=== PATIENT | female | born 1930 | race Caucasian/White ===

== ENCOUNTER 2016-06-20 09:35 | Emergency (ER) | payer MEDICARE, OTHER ==
[2016-06-20 09:45] VITALS: BP 133/51
[2016-06-20 10:04] LABS: Hematocrit 31.2 % (37.0-47.0); Hemoglobin 9.7 gm/dL (12.5-16.0); Mean Corpuscular Hemoglobin 28.3 pg (27-31); Mean Corpuscular Hgb Conc 31.1 g/dl (32-36); Mean Platelet Volume 10.8 fl (6.0-9.5); Neutrophil # 6.7 K/mm3 (1.3-6.0); Neutrophil % 83.4 % (42-75.0); Platelet Count 216 K/mm3 (150-450); Red Blood Count 3.43 M/mm3 (4.2-5.4); Red Cell Distribution Width 15.1 % (11.5-14.0); White Blood Count 8.1 K/mm3 (4.0-10.5)
[2016-06-20 10:18] LABS: Prothrombin Time (Patient) 10.7 Seconds (9.4-11.4)
[2016-06-20 10:19] LABS: INR 1.03 INR (0.90-1.10); Partial Thrombolplastin Time 22.5 Seconds (24-32)
[2016-06-20 11:04] LABS: BUN/Creatinine Ratio 16.9 (9.0-21.6)
[2016-06-20 11:05] LABS: Albumin * 3.2 gm/dl (3.4-5.0); Anion Gap 14.7 mmol/L (6.8-13.8); Bilirubin, Total 0.5 mg/dL (0.0-1.1); Ca. Corrected For Albumin 9.7 mg/dL (8.4-10.2); Calcium * 9.4 mg/dL (7.9-10.9); Carbon Dioxide 25.8 mmol/L (24-32.6); Potassium 3.5 mmol/L (3.4-4.6); Total Protein 6.4 gm/dL (6.2-8.2); Troponin I 0.03 ng/ml (0.00-0.10)
--- NOTE | 2016-06-20 11:10 | ERNOTE ---
Medical Problem HPI - Narrative Date of Service: 06/20/16 - General Chief Complaint: General Assessment Time Seen by Provider: 06/20/16 09:40 Source: patient Exam Limitations: no limitations - Immun/Allergies/Home Medications Immunizations: IMMUNIZATION HX Immunizations Up to Date Yes Allergies/Adverse Reactions: Allergies No Known Allergies Allergy (Verified 06/20/16 09:45) Home Medications: HOME MEDICATIONS Aspirin [Aspirin Enteric Coated] 325 mg PO DAILY 09/30/14 [Last Taken Unknown] Atorvastatin Calcium [Lipitor] 40 mg PO HS 09/30/14 [Last Taken Unknown] Calcium Carbonate/Vitamin D3 [Calcium 600 + Vit D 400 Tablet] 1 each PO DAILY [Last Taken Unknown] Cholecalciferol (Vitamin D3) [Vitamin D3] 1,000 unit PO DAILY 09/30/14 [Last Taken Unknown] Clopidogrel Bisulfate [Plavix] 75 mg PO DAILY 09/30/14 [Last Taken Unknown] Digoxin [Lanoxin] 0.125 mg PO Q2D 09/30/14 [Last Taken Unknown] Docusate Sodium [Colace] 100 mg PO DAILY PRN 09/30/14 [Last Taken Unknown] Doxazosin Mesylate [Cardura] 1 mg PO HS 09/30/14 [Last Taken Unknown] Furosemide [Lasix] 60 mg PO DAILY 09/30/14 [Last Taken Unknown] Hydrocodone/Acetaminophen [Lortab 5-325 mg Tablet] 1 - 2 each PO Q6H PRN [Last Taken Unknown] Isosorbide Mononitrate [Imdur] 60 mg PO HS 09/30/14 [Last Taken 10/17/14 06:30] Levothyroxine Sodium [Synthroid] 150 mcg PO DAILY 09/30/14 [Last Taken Unknown] Lidocaine [Lidoderm 5%] 1 patch TP DAILY 09/30/14 [Last Taken Unknown] Metoprolol Succinate [Toprol Xl] 100 mg PO DAILY 09/30/14 [Last Taken 10/17/14 06:30] Multivitamins [Multivitamin Zara] 1 cap PO DAILY 09/30/14 [Last Taken Unknown] Ondansetron [Zofran Odt] 4 mg PO Q6H PRN 09/30/14 [Last Taken Unknown] Potassium Chloride [K-Dur] 40 meq PO DAILY 09/30/14 [Last Taken Unknown] Quinapril HCl [Accupril] 40 mg PO BID 09/30/14 [Last Taken 10/17/14 06:30] amLODIPine BESYLATE [Norvasc] 5 mg PO DAILY 09/30/14 [Last Taken 10/17/14 06:30] Blood Sugar Diagnostic, Drum [Accu-Chek Compact] 1 each MC QID #30 11/25/14 [ Last Taken Unknown] Insulin Glargine,Hum.rec.anlog [Lantus] 30 units SC HS #2 vial 11/25/14 [Last Taken Unknown] Insulin Lispro [Humalog] 10 units SC TIDWM #1 vial 11/25/14 [Last Taken Unknown] - History of Present History Narrative: Patient comes due to feeling weak. Patient reported she has Hx of Anemia. Patient reported she has been coughing. Patient's grocery worker reported patient has been confuse. At the moment patient is not confuse. Timing: constant Severity: mild Modifying Factors - (Improves): Present: other - Nothing Modifying Factors - (Worsens): Present: other - Nothing Review of Systems - Review of Systems Constitutional: Present: chills, weakness, malaise. Absent: fever EYE: Present: no symptoms reported ENT: Present: no symptoms reported Respiratory: Present: cough - Non productive Cardiology: Absent: chest pain, palpitations, syncope, edema, claudication Gastrointestinal/Abdominal: Absent: nausea, vomiting, diarrhea, abdominal pain Genitourinary: Present: no symptoms reported Musculoskeletal: Present: no symptoms reported Skin: Absent: rash, dryness, lesions Neurological: Present: weakness - Generalized and no specific. Absent: anxiety , depressed, dizziness/light-headedness, seizure, numbness, tingling Endocrine: Present: no symptoms reported Hematologic/Lymphatic: Absent: easy bruising, easy bleeding Psych: Present: no symptoms reported - Patient's Past Medical History Patient History - Medical: Anemia, Arthritis, Diabetes Type 2, Hypothyroidism, Osteoarthritis, Renal Failure Patient History - Cancer: Thyroid Patient History - Surgical Procedures: Cataracts, Pacemaker, Total Hip Replacement - Family History Mother Family History - Medical: Family History - Cardiac/Respiratory: No pertinent hx Father Family History - Medical: , No pertinent hx Family History - Cardiac/Respiratory: No pertinent hx - Social History Living Situations: alone Smoking Status: Never smoker Have you smoked in the past 12 months: No Alcohol Use: none Drug Use: none Physical Exam - Physical Exam General Appearance: Present: alert, no apparent distress, active. Absent: lethargic, obese Eye Exam: Normal inspection: bilateral, PERRL: bilateral, EOMI: bilateral, Conjunctivae pale: bilateral - Mild Ears, Nose, Throat: Present: normal ENT inspection, hearing grossly normal, normal pharynx Neck: Present: normal inspection, nontender Respiratory: Present: no respiratory distress, normal breath sounds, no accessory muscle use, chest nontender, lungs clear Cardiovascular/Chest: Present: regular rate, rhythm, normal peripheral pulses, systolic murmur, other - Patient has a PPM on chest noticed Peripheral Pulses: N=norm/S=strong/W=weak/B=bound/A=absent: Carotid (R): Normal , Carotid (L): Normal, Radial (R): Normal, Radial (L): Normal, Dorsalis-pedis (R ): Normal, Dorsalis-pedis (L): Normal Gastrointestinal/Abdominal: Present: normal bowel sounds, nontender, nondistended, soft, no organomegaly. Absent: guarding, rebound, mass, hernia Back Exam: Present: normal inspection, normal range of motion, no CVA tenderness , no vertebral tenderness Extremity Exam: Present: normal inspection, non-tender, no edema, normal range of motion Neurological Exam: Present: alert, oriented, normal mood/affect, no motor/ sensory deficits DTR: N=norm/NB=norm/brisk/A=abs/DD=dull/dimin/HC=hyperactive: Bicep (R): Normal , Bicep (L): Normal, Knee (R): Normal, Knee (L): Normal Skin Exam: Present: normal color, warm/dry Lymphatic Exam: Present: no adenopathy ED Progress - Results and Orders Patient's Lab Results:: I have reviewed the patient's lab results. Results and Orders: Patient Hgb is > 8 and is not actively bleeding and is stable since last year. Patient Creat and BUN are stable since last year Patient has normal K level Troponin is negative. Patient with renal disease and PPM. UA no sign of infection - Vital Signs Patient's Vital Signs:: I have reviewed the patient's vital signs. Vital Signs: Vital Signs 06/20/16 09:41 Temperature 34.7 C L Pulse Rate 66 Respiratory 14 Rate Blood Pressure 133/51 O2 Sat by Pulse 99 Oximetry - EKG EKG read: Interp. by me EKG Comments: HR: 61, No ST Elevation. Patient has an active PPM, LBBB pattern, no change from previous EKG - X-Ray X-Ray #1 X-Ray: chest X-ray Comments: No pathology reported by Radiologist - CT/Ultrasound CT/Ultrasound Narrative: No acute process reported by Radiologist - Progress/Reassessment Chief Complaint: General Assessment Progress:: Unchanged - Transfer of Care Expected Disposition: Discharge Plan - Plan Plan: Patient with no acute infectious process. Patient will follow in clinic. manager production has been consulted to evaluate case and assist patient with her social needs. Departure - Departure Clinical Impression: Weakness Anemia Qualifiers: Anemia type: other cause Other causes of anemia: chronic disease, kidney Qualified Code(s): N18.9 - Chronic kidney disease, unspecified; D63.1 - Anemia in chronic kidney disease Disposition: Home self-care Condition: Stable Instructions: Anemia, Nonspecific, Weakness Referrals: Kristen Perea MD [Primary Care Provider] -
[2016-06-20 11:13] LABS: Urine Bilirubin Negative (NEGATIVE); Urine Ketone Negative (NEGATIVE); Urine Nitrite Negative (NEGATIVE); Urine Protein >=300 mg/dL (NEGATIVE); Urine Specific Gravity 1.025 SP.GR. (1.005-1.010); Urine Urobilinogen Normal (NORMAL)
[2016-06-20 11:21] LABS: Urine Blood 10 /ul (NEGATIVE)
[2016-06-20 11:22] LABS: Urine Appearance Clear; Urine Bacteria None Seen; Urine Color Yellow; Urine RBC 0-5 /hpf (0-5); Urine WBC 0-5 /hpf (0-5)
== END 2016-06-20 12:05 | disposition home or self-care (01) ==
LOC: ER 09:35
DX: N18.9 Chronic kidney disease, unspecified (principal); D63.1 Anemia in chronic kidney disease; Z85.850 Personal history of malignant neoplasm of thyroid; Z95.0 Presence of cardiac pacemaker; Z96.649 Presence of unspecified artificial hip joint

== ENCOUNTER 2016-06-21 10:22 | Observation (INO) | payer MEDICARE, OTHER ==
[2016-06-21] MEDS ORDERED: SPIRONOLACTONE 25 MG TABLET PO STA (11:21)
[2016-06-21] MEDS ORDERED: METOLAZONE 2.5 MG TABLET PO ONE (11:23)
[2016-06-21] MEDS ORDERED: BISACODYL 5 MG TABLET.DR PO ONE (11:25)
[2016-06-21] MEDS ORDERED: FUROSEMIDE 10 MG/ML VIAL IV ONE (11:39)
[2016-06-21] MEDS ORDERED: MORPHINE SULFATE 10 MG/ML SYRG IV PRN (11:41)
--- NOTE | 2016-06-21 12:23 | HP ---
Chief Complaint - Chief Complaint Date of Service: 06/21/16 Time of Service: 11:20 Chief Complaint: CHF exacerbation, CKD History of Present Illness: 85 years old female adm to the hospital from Dr Perea office. PMH significant for CHF, End stage renal disease hypertension, diabetes type II, a- fib, cardiomyopathy, hypothyroidism. pt stated for the past 2-5 days she has been feeling excessively weak with increased swelling to her legs and hands. She report orthopnea and sleep sitting up in chair. This morning she was feeling worst and was unable to get out of bed due to weakness. She called her friend/ care maker who drove her to PCP. Pt stated she cant remember if she had taken her medications for the past few days. She just want to be at home and comfortably. Pt stated she want to be DNR and is agreeable to hospice service. Pt poor historian hence previous charts were reviewed to obtained additional information. Will be adm in [facility] for comfortable measures and discharge with hospice. - Patient's Past Medical History Patient History - Medical: Anemia - Of chronic disease, Arthritis, Diabetes Type 2, Hypothyroidism, Osteoarthritis, Renal Failure Patient History - Cardiac/Respiratory: Atrial Fibrillation, CHF - systolic EF 35 %, Hypertension Patient History - Cancer: Thyroid, Skin - basal cell Patient History - Surgical Procedures: Cataracts - BL cataracts removed, Pacemaker, Total Hip Replacement - BL hip replacement, Other - Liver biopsy, insertion of renal artery stent (11/2010), partial thyroidectomy - Family History Mother Family History - Medical: Family History - Cardiac/Respiratory: No pertinent hx Father Family History - Medical: , No pertinent hx Family History - Cardiac/Respiratory: No pertinent hx Brother Family History - Cancer: Other - Facial cancer - Social History Living Situations: alone Smoking Status: Never smoker Have you smoked in the past 12 months: No Do you dip or chew tobacco: No Patient requests Smoking Cessation Consult: No Initiate information on Smoking Cessation: No Alcohol Use: none Drug Use: none Review Of Systems (GEN) - Review of Systems Generalized/Overall Review: Present: Weakness EENTM: Present: No Symptoms Reported Respiratory: Present: Orthopnea Cardiac: Present: Edema Abdominal: Present: Constipation Genitourinary: Present: No Symptoms Reported Musculoskeletal: Present: No Symptoms Reported Neurological: Present: No Symptoms Reported Skin: Present: No Symptoms Reported Endocrine: Present: No Symptoms Reported Immunizations: IMMUNIZATION HX Immunizations Up to Date Yes Allergies/Adverse Reactions: Allergies Allergy/AdvReac Type Severity Reaction Status Date / Time No Known Allergies Allergy Verified 06/20/16 09:45 Home Medications: HOME MEDICATIONS Aspirin [Aspirin Enteric Coated] 325 mg PO DAILY 09/30/14 [Last Taken Unknown] Atorvastatin Calcium [Lipitor] 40 mg PO HS 09/30/14 [Last Taken Unknown] Calcium Carbonate/Vitamin D3 [Calcium 600 + Vit D 400 Tablet] 1 each PO DAILY [Last Taken Unknown] Cholecalciferol (Vitamin D3) [Vitamin D3] 2,000 unit PO DAILY 09/30/14 [Last Taken Unknown] Clopidogrel Bisulfate [Plavix] 75 mg PO DAILY 09/30/14 [Last Taken Unknown] Digoxin [Lanoxin] 0.125 mg PO Q2D 09/30/14 [Last Taken Unknown] Doxazosin Mesylate [Cardura] 1 mg PO HS 09/30/14 [Last Taken Unknown] Furosemide [Lasix] 40 mg PO DAILY 09/30/14 [Last Taken Unknown] Isosorbide Mononitrate [Imdur] 60 mg PO HS 09/30/14 [Last Taken 10/17/14 06:30] Lidocaine [Lidoderm 5%] 1 patch TP DAILY 09/30/14 [Last Taken Unknown] Metoprolol Succinate [Toprol Xl] 50 mg PO DAILY 09/30/14 [Last Taken 10/17/14 06 :30] Multivitamins [Multivitamin Zara] 1 cap PO DAILY 09/30/14 [Last Taken Unknown] Ondansetron [Zofran Odt] 4 mg PO Q6H PRN 09/30/14 [Last Taken Unknown] Potassium Chloride [K-Dur] 20 meq PO DAILY 09/30/14 [Last Taken Unknown] Quinapril HCl [Accupril] 40 mg PO HS 09/30/14 [Last Taken 10/17/14 06:30] amLODIPine BESYLATE [Norvasc] 5 mg PO DAILY 09/30/14 [Last Taken 10/17/14 06:30] Blood Sugar Diagnostic, Drum [Accu-Chek Compact] 1 each MC QID #30 11/25/14 [ Last Taken Unknown] Insulin Glargine,Hum.rec.anlog [Lantus] 30 units SC HS #2 vial 11/25/14 [Last Taken Unknown] Insulin Lispro [Humalog] 10 units SC TIDWM #1 vial 11/25/14 [Last Taken Unknown] Acetaminophen [Tylenol] 500 mg PO DAILY PRN 06/21/16 [Last Taken Unknown] Ferrous Sulfate [Iron] 325 mg PO DAILY 06/21/16 [Last Taken Unknown] Hydroxychloroquine Sulfate [Plaquenil] 200 mg PO BID 06/21/16 [Last Taken Unknown] Levothyroxine Sodium [Levo-T] 100 mcg PO DAILY 06/21/16 [Last Taken Unknown] Exam - Exam Vital Signs: Vital Signs - Last Taken Temp 34.7 C L 06/20/16 12:18 Pulse Resp BP 133/51 06/20/16 12:18 Pulse Ox Constitutional: Present: Alert, Oriented x3, Cooperative, Well developed, Mild distress, Elderly, Obese ENT Exam: Present: moist mucous membranes Eye Exam: bilateral eye: PERRL Neck: Present: full range of motion Back Exam: Present: normal inspection, no CVA tenderness, no vertebral tenderness Respiratory: Present: chest non-tender, normal breath sounds, no accessory muscle use, decreased breath sounds, crackles Cardiovascular/Chest: Present: normal peripheral pulses, no chest tenderness, no gallop, no JVD, other - BLE pitting edema Peripheral Pulses: dorsalis-pedis (R): 2+, dorsalis-pedis (L): 2+ Abdomen: Present: Normal bowel sounds, soft, nontender, nondistended, no rebound tenderness /Rectal: Present: Exam deferred Extremity: Present: normal range of motion, non-tender, normal inspection, lower extremity edema, pedal edema, slow capillary refill Skin Exam: Present: normal color, warm/dry, no cyanosis Lymphatic: Present: no adenopathy Neurologic: Present: oriented x 3 Appearance: Present: appropriate appearance Eye contact: Present: cooperative, good eye contact Thoughts: Present: normal thought pattern Diagnostic Studies: Laboratory Tests 11/24/14 11/24/14 06/20/16 01:39 01:39 10:00 WBC 8.1 RBC 3.43 L Hgb 9.7 L Hct 31.2 L MCV 91.0 MCH 28.3 MCHC 31.1 L RDW 15.1 H Plt Count 216 MPV 10.8 H Immature Gran % (Auto) 0.50 H Immature Gran # (Auto) 0.04 H Neutrophils % 83.4 H Lymphocytes % 7.3 L PT 10.7 INR (Anticoag Therapy) 1.03 PTT ([place]) 22.5 L Sodium 141 Plasma Sodium 143 H Potassium 3.5 Chloride 104 BUN 43 H 53 H Creatinine 2.3 H 3.14 H D Est GFR (Non-Af Amer) 22 L 15 L D Random Glucose 200 H Hemoglobin A1c 7.8 H Assessment/Plan - Narrative Narrative: Systolic CHF exacerbation- possible due non compliance with taking home medications. EF 35% pt with Pacemaker/ defibrillator Lasix 120mg IV x1, Metalazone 2.5mg po x1 and Aldactone 75mg x1 Monitor BMP, CBC in am Morphine 5mg Q6 PRN Supplemented oxygen PRN Constipation Dulcolax now and continue with senna PRN Chronic Kidney Disease stage IV 04/17 pt was recommend for renal replacement therapy with senior producer and refused. 06/20 BUN/ Cre 53/3.14 Avoid Nephrotoxic agents Diabetes Acc-check AC+HS and low dose sliding scale Continue with home dose Lantus 30 units HS Consistent carb diet Anemia or chronic disease 06/20 16 Hgb 9.7- stable since last year Code Status: DNR VTE ppx: Ambulate Plan to be discharge with hospice home vs [place] with daughter. Time: 45 minutes - Assessment/Plan (1) CHF (congestive heart failure) Problem: Acute Qualifiers: Congestive heart failure type: systolic Congestive heart failure chronicity : acute on chronic Qualified Code(s): I50.23 - Acute on chronic systolic ( congestive) heart failure (2) CKD (chronic kidney disease) Problem: Chronic Qualifiers: Chronic kidney disease stage: stage 5 Qualified Code(s): N18.5 - Chronic kidney disease, stage 5 (3) Anemia Problem: Chronic Qualifiers: Other causes of anemia: chronic disease, kidney (4) Diabetes Problem: Chronic Qualifiers: Diabetes mellitus type: type 2 Diabetes mellitus complication detail: with chronic kidney disease Diabetes mellitus terminal operations manager insulin use: with terminal operations manager use Chronic kidney disease stage: stage 5, not on chronic dialysis
[2016-06-21] MEDS ORDERED: SENNOSIDES/DOCUSATE SODIUM 1 TAB TABLET PO SCH (21:00)
[2016-06-22 05:52] LABS: Hematocrit 32.3 % (37.0-47.0); Hemoglobin 10.2 gm/dL (12.5-16.0); Mean Corpuscular Hemoglobin 27.8 pg (27-31); Mean Corpuscular Hgb Conc 31.6 g/dl (32-36); Mean Platelet Volume 11.5 fl (6.0-9.5); Neutrophil # 6.2 K/mm3 (1.3-6.0); Neutrophil % 74.6 % (42-75.0); Platelet Count 177 K/mm3 (150-450); Red Blood Count 3.67 M/mm3 (4.2-5.4); Red Cell Distribution Width 15.2 % (11.5-14.0); White Blood Count 8.3 K/mm3 (4.0-10.5)
[2016-06-22 06:11] LABS: Anion Gap 13.9 mmol/L (6.8-13.8); Calcium * 9.5 mg/dL (7.9-10.9); Carbon Dioxide 29.4 mmol/L (24-32.6); Estimated Creat Clear 11.2; Potassium 3.3 mmol/L (3.4-4.6)
[2016-06-22] MEDS ORDERED: FUROSEMIDE 10 MG/ML VIAL IV STA ×2 (08:38)
[2016-06-22] MEDS ORDERED: SPIRONOLACTONE 100 MG TABLET PO STA (08:41)
[2016-06-22] MEDS ORDERED: SPIRONOLACTONE 25 MG TABLET ONE ×2 (08:59→09:01)
[2016-06-22] MEDS ORDERED: FUROSEMIDE 10 MG/ML VIAL ONE ×2 (08:59→09:01)
[2016-06-22] MEDS ORDERED: ISOSORBIDE MONONITRATE 60 MG TAB.SR.24H PO SCH (09:00)
[2016-06-22] MEDS: hydrALAZINE HCL 10 MG TABLET PO SCH ×2 (09:21→13:55)
[2016-06-22 11:23] VITALS: BP 96/76
--- NOTE | 2016-06-22 13:24 | DS ---
(1) HFrEF (heart failure with reduced ejection fraction) Problem: Acute Qualifiers: Heart failure chronicity: acute on chronic Qualified Code(s): I50.23 - Acute on chronic systolic (congestive) heart failure (2) CKD (chronic kidney disease) stage 4, GFR 15-29 ml/min Problem: Chronic (3) Hypertension Problem: Chronic Qualifiers: Hypertension type: essential hypertension Qualified Code(s): I10 - Essential (primary) hypertension (4) Anemia in chronic renal disease Problem: Chronic (5) chronic afib w/ PPM Problem: Chronic Description of Stay: DATE OF ADMISSION: 06/21/2016. DATE OF DISCHARGE: 06/22/2016. HOSPITAL COURSE: Fabienne Meyer is a 86-year-old WF with a H/O HTN, HLD, T2DM, HFrEF 35%, CKD stage IV who came into the office because of increasing shortness of breath/ difficulty in breathing for the last few days. She has seen a examining officer in the past and decided against dialysis. Her medications were maximized for CHF. She was dyspneic at rest. Her son and daughter were called as she wanted to go into hospice. She was given diuretics IV and morphine IV with improvement in CHF, SOB and anxiety. Her daughter [CARLA] drove down from [place] and decided to take the patient with her. Explained the condition in detail and discussed all the medications with her. A copy of the last report from the examining officer was given to the daughter after she signed a release. A copy of the H&P and labs were also given to the patient. Prescription for liquid morphine was given for shortness of breath and anxiety. Her condition at the time of transfer was stable. No return appointment was scheduled as the patient was moving out of state. Procedures Performed: none Results and Findings: Laboratory Tests 06/22/16 05:45 WBC 8.3 Hgb 10.2 L Hct 32.3 L Plt Count 177 06/22/16 05:45 Plasma Sodium 144 H Potassium 3.3 L Chloride 102 Carbon Dioxide 29.4 BUN 51 H Creatinine 3.00 H Est GFR (Non-Af Amer) 16 L Random Glucose 251 H Calcium 9.5 Discharge Disposition: Home self care Disposition: Home self-care Condition: Poor Discharge Activity: Activity as tolerated Discharge Diet: Consistent carbs, Low salt, Low fat/chol Referrals: Kristen Perea MD [Primary Care Provider] - Problem Oriented Discharge Instructions to Patient/Family: Chronic Kidney Disease, [id number] Additional Patient Instructions (free text): patient given a script for oral morphine liquid 10 mg/5ml - give 5mg QID prn - 250 ml. Prescriptions (Any new or edited meds): Bumetanide 2 mg PO DAILY #30 tablet Insulin Glargine,Hum.rec.anlog [Lantus] 20 units SC HS #2 vial Insulin Lispro [Humalog] 5 units SC TIDWM #1 vial Sennosides/Docusate Sodium [Senokot-S] 2 tab PO HS #1 bottle Complete Home Medications List: Complete Home Medication List: Atorvastatin Calcium [Lipitor] 40 mg PO HS 09/30/14 Cholecalciferol (Vitamin D3) [Vitamin D3] 2,000 unit PO DAILY 09/30/14 Clopidogrel Bisulfate [Plavix] 75 mg PO DAILY 09/30/14 Digoxin [Lanoxin] 0.125 mg PO Q2D 09/30/14 Isosorbide Mononitrate [Imdur] 60 mg PO HS 09/30/14 Metoprolol Succinate [Toprol Xl] 50 mg PO DAILY 09/30/14 Multivitamins [Multivitamin Zara] 1 cap PO DAILY 09/30/14 Potassium Chloride [K-Dur] 20 meq PO DAILY 09/30/14 Hydroxychloroquine Sulfate [Plaquenil] 200 mg PO BID 06/21/16 Levothyroxine Sodium [Levo-T] 100 mcg PO DAILY 06/21/16 Bumetanide 2 mg PO DAILY #30 tablet 06/22/16 Insulin Glargine,Hum.rec.anlog [Lantus] 20 units SC HS #2 vial 06/22/16 Insulin Lispro [Humalog] 5 units SC TIDWM #1 vial 06/22/16 Sennosides/Docusate Sodium [Senokot-S] 2 tab PO HS #1 bottle 06/22/16
[2016-06-22] MEDS ORDERED: MORPHINE SULFATE 10 MG/ML SYRG IV PRN (13:33)
== END 2016-06-22 16:44 | disposition home or self-care (01) ==
LOC: MS 10:22
PROVIDERS: ADMIT Internal Medicine; ATTEND Internal Medicine
DX: I50.23 Acute on chronic systolic (congestive) heart failure (principal); N18.4 Chronic kidney disease, stage 4 (severe); D63.1 Anemia in chronic kidney disease; I48.2 Chronic atrial fibrillation; E11.22 Type 2 diabetes mellitus with diabetic chronic kidney disease; I12.9 Hypertensive chronic kidney disease with stage 1 through stage 4 chronic kidney disease, or unspecified chronic kidney disease; M19.90 Unspecified osteoarthritis, unspecified site; E03.9 Hypothyroidism, unspecified
CPT/HCPCS: 36415; 80048; 85025; 96374; G0378; G0379